=== PATIENT | male | born 1955 | race Caucasian/White ===

== ENCOUNTER 2019-11-16 12:15 | Outpatient (CLI) | payer MEDICARE ==
[~2019-11-16 12:15] MED LIST: ALBU8HFA PO; BENZ200C59 PO; GABA-532 PO; GUAI120018 PO; LISI10TA4 PO; METO50TA17 PO; SULF1TAB49 PO
[2019-11-16] MEDS ORDERED: hydrocortisone 1% cream 28gm TP ONE (14:15)
== END 2019-11-16 14:27 | disposition home or self-care (01) ==
LOC: WOUND CARE 12:15 → EDSTATUS 13:00 → WOUND CARE 14:27
PROVIDERS: ATTEND Nurse Practitioner
DX: S81.802A Unspecified open wound, left lower leg, initial encounter (principal); L03.115 Cellulitis of right lower limb; L03.113 Cellulitis of right upper limb; L03.114 Cellulitis of left upper limb; E11.319 Type 2 diabetes mellitus with unspecified diabetic retinopathy without macular edema; E11.22 Type 2 diabetes mellitus with diabetic chronic kidney disease; I13.10 Hypertensive heart and chronic kidney disease without heart failure, with stage 1 through stage 4 chronic kidney disease, or unspecified chronic kidney disease; I25.10 Atherosclerotic heart disease of native coronary artery without angina pectoris; N18.9 Chronic kidney disease, unspecified; D63.1 Anemia in chronic kidney disease; E11.65 Type 2 diabetes mellitus with hyperglycemia; E11.40 Type 2 diabetes mellitus with diabetic neuropathy, unspecified; E11.51 Type 2 diabetes mellitus with diabetic peripheral angiopathy without gangrene; L23.7 Allergic contact dermatitis due to plants, except food; E78.5 Hyperlipidemia, unspecified; M19.90 Unspecified osteoarthritis, unspecified site; E44.0 Moderate protein-calorie malnutrition; E66.01 Morbid (severe) obesity due to excess calories; I25.2 Old myocardial infarction; G89.29 Other chronic pain; I87.8 Other specified disorders of veins; E78.00 Pure hypercholesterolemia, unspecified; J44.9 Chronic obstructive pulmonary disease, unspecified; F12.10 Cannabis abuse, uncomplicated; F17.210 Nicotine dependence, cigarettes, uncomplicated; Z68.36 Body mass index [BMI] 36.0-36.9, adult; Z79.4 Long term (current) use of insulin; Z79.2 Long term (current) use of antibiotics; Z79.899 Other long term (current) drug therapy; X58.XXXA Exposure to other specified factors, initial encounter; Y93.89 Activity, other specified; Y92.89 Other specified places as the place of occurrence of the external cause; Y99.8 Other external cause status
CPT/HCPCS: 36416; 82948; 87070; 87075; 87102; G0463

== ENCOUNTER 2019-11-23 13:05 | Outpatient (CLI) | payer MEDICARE | END 2019-11-23 14:15 | disposition home or self-care (01) | LOC: WOUND CARE 13:05 → EDSTATUS 13:20 → WOUND CARE 14:15 | PROVIDERS: ATTEND Nurse Practitioner | DX: S81.802D Unspecified open wound, left lower leg, subsequent encounter (principal); L03.115 Cellulitis of right lower limb; L03.113 Cellulitis of right upper limb; L03.114 Cellulitis of left upper limb; E11.319 Type 2 diabetes mellitus with unspecified diabetic retinopathy without macular edema; E11.22 Type 2 diabetes mellitus with diabetic chronic kidney disease; I13.10 Hypertensive heart and chronic kidney disease without heart failure, with stage 1 through stage 4 chronic kidney disease, or unspecified chronic kidney disease; I25.10 Atherosclerotic heart disease of native coronary artery without angina pectoris; N18.9 Chronic kidney disease, unspecified; D63.1 Anemia in chronic kidney disease; E11.65 Type 2 diabetes mellitus with hyperglycemia; E11.40 Type 2 diabetes mellitus with diabetic neuropathy, unspecified; E11.51 Type 2 diabetes mellitus with diabetic peripheral angiopathy without gangrene; L23.7 Allergic contact dermatitis due to plants, except food; E78.5 Hyperlipidemia, unspecified; M19.90 Unspecified osteoarthritis, unspecified site; E44.0 Moderate protein-calorie malnutrition; E66.01 Morbid (severe) obesity due to excess calories; I25.2 Old myocardial infarction; G89.29 Other chronic pain; I87.8 Other specified disorders of veins; E78.00 Pure hypercholesterolemia, unspecified; J44.9 Chronic obstructive pulmonary disease, unspecified; F12.10 Cannabis abuse, uncomplicated; F17.210 Nicotine dependence, cigarettes, uncomplicated; Z68.36 Body mass index [BMI] 36.0-36.9, adult; Z79.4 Long term (current) use of insulin; Z79.2 Long term (current) use of antibiotics; Z79.899 Other long term (current) drug therapy; X58.XXXD Exposure to other specified factors, subsequent encounter | CPT/HCPCS: 36416; 82948; G0463 ==

== ENCOUNTER 2019-11-30 09:08 | Outpatient (CLI) | payer MEDICARE | END 2019-11-30 23:59 | disposition home or self-care (01) | LOC: WOUND CARE 09:08 → EDSTATUS 09:40 → WOUND CARE 23:59 | PROVIDERS: ATTEND Nurse Practitioner | DX: S81.802D Unspecified open wound, left lower leg, subsequent encounter (principal); S81.801D Unspecified open wound, right lower leg, subsequent encounter; L03.115 Cellulitis of right lower limb; L03.113 Cellulitis of right upper limb; L03.114 Cellulitis of left upper limb; E11.319 Type 2 diabetes mellitus with unspecified diabetic retinopathy without macular edema; E11.22 Type 2 diabetes mellitus with diabetic chronic kidney disease; I13.0 Hypertensive heart and chronic kidney disease with heart failure and stage 1 through stage 4 chronic kidney disease, or unspecified chronic kidney disease; I25.10 Atherosclerotic heart disease of native coronary artery without angina pectoris; N18.9 Chronic kidney disease, unspecified; D63.1 Anemia in chronic kidney disease; E11.65 Type 2 diabetes mellitus with hyperglycemia; E11.40 Type 2 diabetes mellitus with diabetic neuropathy, unspecified; E11.51 Type 2 diabetes mellitus with diabetic peripheral angiopathy without gangrene; L23.7 Allergic contact dermatitis due to plants, except food; E78.5 Hyperlipidemia, unspecified; M19.90 Unspecified osteoarthritis, unspecified site; E44.0 Moderate protein-calorie malnutrition; E66.01 Morbid (severe) obesity due to excess calories; I25.2 Old myocardial infarction; G89.29 Other chronic pain; I87.8 Other specified disorders of veins; E78.00 Pure hypercholesterolemia, unspecified; J44.9 Chronic obstructive pulmonary disease, unspecified; F12.10 Cannabis abuse, uncomplicated; F17.210 Nicotine dependence, cigarettes, uncomplicated; Z68.36 Body mass index [BMI] 36.0-36.9, adult; Z79.4 Long term (current) use of insulin; Z79.899 Other long term (current) drug therapy; X58.XXXD Exposure to other specified factors, subsequent encounter | CPT/HCPCS: 29581; 36416; 82948 ==

== ENCOUNTER 2019-12-07 12:57 | Outpatient (CLI) | payer MEDICARE | END 2019-12-07 23:59 | disposition home or self-care (01) | LOC: WOUND CARE 12:57 | PROVIDERS: ATTEND Nurse Practitioner | DX: S81.802D Unspecified open wound, left lower leg, subsequent encounter (principal); S81.801D Unspecified open wound, right lower leg, subsequent encounter; L03.115 Cellulitis of right lower limb; L03.113 Cellulitis of right upper limb; L03.114 Cellulitis of left upper limb; E11.319 Type 2 diabetes mellitus with unspecified diabetic retinopathy without macular edema; E11.22 Type 2 diabetes mellitus with diabetic chronic kidney disease; I13.0 Hypertensive heart and chronic kidney disease with heart failure and stage 1 through stage 4 chronic kidney disease, or unspecified chronic kidney disease; I25.10 Atherosclerotic heart disease of native coronary artery without angina pectoris; N18.9 Chronic kidney disease, unspecified; D63.1 Anemia in chronic kidney disease; E11.65 Type 2 diabetes mellitus with hyperglycemia; E11.40 Type 2 diabetes mellitus with diabetic neuropathy, unspecified; E11.51 Type 2 diabetes mellitus with diabetic peripheral angiopathy without gangrene; L23.7 Allergic contact dermatitis due to plants, except food; E78.5 Hyperlipidemia, unspecified; M19.90 Unspecified osteoarthritis, unspecified site; E44.0 Moderate protein-calorie malnutrition; E66.01 Morbid (severe) obesity due to excess calories; I25.2 Old myocardial infarction; G89.29 Other chronic pain; I87.8 Other specified disorders of veins; E78.00 Pure hypercholesterolemia, unspecified; J44.9 Chronic obstructive pulmonary disease, unspecified; F12.10 Cannabis abuse, uncomplicated; Z68.36 Body mass index [BMI] 36.0-36.9, adult; Z79.4 Long term (current) use of insulin; Z79.899 Other long term (current) drug therapy; X58.XXXD Exposure to other specified factors, subsequent encounter | CPT/HCPCS: 82948; G0463 ==

== ENCOUNTER 2020-10-15 19:53 | Emergency (ER) | payer MEDICARE, OTHER ==
[~2020-10-15] VITALS: Ht 180.3 cm; Wt 136.4 kg
[~2020-10-15 19:53] MED LIST changes: +LISI10TA27 PO; -LISI10TA4 PO
[2020-10-15 20:52] VITALS: BP 153/109
[2020-10-15 21:58] LABS: BASOPHILS % (AUTO) 0.4 % (0-1); EOSINOPHILS % (AUTO) 0.5 % (0-6); HEMATOCRIT 38.8 % (42.0-52.0); HEMOGLOBIN 12.7 g/dl (14.0-17.9); LYMPHOCYTES # (AUTO) 1.8 X10'3 (1.1-4.8); LYMPHOCYTES % (AUTO) 24.7 % (21-51); MEAN CORPUSCULAR HEMOGLOBIN 29.8 PG (27.0-31.0); MEAN CORPUSCULAR HGB CONC 32.8 g/dL (33.0-36.5); MEAN CORPUSCULAR VOLUME 90.9 FL (78-98); MEAN PLATELET VOLUME 6.7 FL (7.4-10.4); MONOCYTES # (AUTO) 0.6 X10'3 (0-0.9); MONOCYTES % (AUTO) 7.9 % (2-12); NEUTROPHILS # (AUTO) 4.8 X10'3 (1.8-7.7); NEUTROPHILS % (AUTO) 66.5 % (42-75); PLATELET COUNT 414 X10'3 (140-440); RED BLOOD COUNT 4.27 X10'6 (4.70-6.10); RED CELL DISTRIBUTION WIDTH 15.8 % (11.5-14.5); WHITE BLOOD COUNT 7.3 X10'3 (4.5-11.0)
[2020-10-15 22:17] LABS: ALANINE AMINOTRANSFERASE 20 U/L (12-78); ALBUMIN 3.1 G/DL (3.4-5.0); ALBUMIN/GLOBULIN RATIO 0.7 (1.1-1.5); ALKALINE PHOSPHATASE 101 IU/L (46-116); ANION GAP 9 (8-16); ASPARTATE AMINO TRANSFERASE 15 U/L (10-37); BILIRUBIN,TOTAL 0.7 MG/DL (0.1-1.0); BLOOD UREA NITROGEN 16 MG/DL (7-18); BUN/CREATININE RATIO 16.3 (5.4-32.0); CALCIUM 8.4 MG/DL (8.5-10.1); CHLORIDE 100 MMOL/L (99-107); CREATININE 0.98 MG/DL (0.60-1.10); GLUCOSE 184 MG/DL (70-104); POTASSIUM 3.8 MMOL/L (3.5-5.1); SODIUM 140 MMOL/L (135-145); TOTAL CARBON DIOXIDE 31.5 MMOL/L (24-32); TOTAL PROTEIN 7.4 G/DL (6.4-8.2); eGFR 77 ML/MIN
[2020-10-15 22:35] LABS: FERRITIN 124 NG/ML (26-388); LACTATE DEHYDROGENASE 222 U/L (85-227)
[2020-10-15 23:43] LABS: D-DIMER 1.21 MG/L FEU (0-0.50)
[2020-10-16] MEDS ORDERED: iohexol 350MG/ML 100ml bottle IV ONE (01:36)
[2020-10-27] MEDS ORDERED: GLIP10TA11 PO (16:17)
[2020-10-27] MEDS ORDERED: AMLO5TAB16 PO (16:17)
[2020-10-27] MEDS ORDERED: HYDR25TA5 PO (16:17)
[2020-10-27] MEDS ORDERED: METF-950 PO (16:17)
[2020-10-27] MEDS ORDERED: EMPA10TA PO (16:17)
[2020-10-27] MEDS ORDERED: CARCD120C PO (16:17)
== END 2020-10-16 02:24 | disposition left against medical advice (07) ==
LOC: ER 19:54
DX: K46.9 Unspecified abdominal hernia without obstruction or gangrene (principal); Z53.21 Procedure and treatment not carried out due to patient leaving prior to being seen by health care provider
CPT/HCPCS: 36415; 71045; 80053; 82728; 83605; 83615; 84145; 85025; 85379; 85384; 87040; Q9967

== ENCOUNTER 2020-11-06 12:39 | Emergency (ER) | payer OTHER ==
[~2020-11-06] VITALS: Ht 172.7 cm; Wt 125.0 kg
[~2020-11-06 12:39] MED LIST changes: -ALBU8HFA PO; +APIX5TAB3 PO; -BENZ200C59 PO; +DILT240C90 PO; +EMPA10TA PO; +FURO40TA4 PO; -GABA-532 PO; +GLIP10TA11 PO; -GUAI120018 PO; +HYDR25TA5 PO; -LISI10TA27 PO; +LISI2.5T14 PO; +METF-950 PO; +METO50TA16 PO; -METO50TA17 PO; +POTA20TA19 PO; +PRED20TA PO; -SULF1TAB49 PO
[2020-11-06] MEDS ORDERED: normal saline 1000ML IV soln IV ONE (13:50)
[2020-11-06 14:20] LABS: BASOPHILS % (AUTO) 0.1 % (0-1); EOSINOPHILS # (AUTO) 0.1 X10'3 (0-0.9); EOSINOPHILS % (AUTO) 0.5 % (0-6); HEMOGLOBIN 13.7 g/dl (14.0-17.9); LYMPHOCYTES # (AUTO) 1.7 X10'3 (1.1-4.8); LYMPHOCYTES % (AUTO) 17.1 % (21-51); MEAN CORPUSCULAR HEMOGLOBIN 29.4 PG (27.0-31.0); MEAN CORPUSCULAR HGB CONC 32.6 g/dL (33.0-36.5); MEAN CORPUSCULAR VOLUME 90.3 FL (78-98); MEAN PLATELET VOLUME 7.3 FL (7.4-10.4); MONOCYTES # (AUTO) 0.8 X10'3 (0-0.9); NEUTROPHILS # (AUTO) 7.3 X10'3 (1.8-7.7); NEUTROPHILS % (AUTO) 74.3 % (42-75); PLATELET COUNT 374 X10'3 (140-440); RED BLOOD COUNT 4.65 X10'6 (4.70-6.10); RED CELL DISTRIBUTION WIDTH 16.6 % (11.5-14.5); WHITE BLOOD COUNT 9.9 X10'3 (4.5-11.0)
[2020-11-06 14:31] LABS: PARTIAL THROMBOPLASTIN TIME 23 SECONDS (22-32)
[2020-11-06 14:36] LABS: ALANINE AMINOTRANSFERASE 49 U/L (12-78); ALBUMIN 3.2 G/DL (3.4-5.0); ALBUMIN/GLOBULIN RATIO 0.9 (1.1-1.5); ALKALINE PHOSPHATASE 105 IU/L (46-116); ANION GAP 9 (8-16); ASPARTATE AMINO TRANSFERASE 21 U/L (10-37); BILIRUBIN,TOTAL 0.6 MG/DL (0.1-1.0); BLOOD UREA NITROGEN 35 MG/DL (7-18); BUN/CREATININE RATIO 31.5 (5.4-32.0); CALCIUM 8.6 MG/DL (8.5-10.1); CHLORIDE 104 MMOL/L (99-107); CREATININE 1.11 MG/DL (0.60-1.10); GLUCOSE 161 MG/DL (70-104); POTASSIUM 3.5 MMOL/L (3.5-5.1); SODIUM 144 MMOL/L (135-145); TOTAL CARBON DIOXIDE 31.1 MMOL/L (24-32); TOTAL PROTEIN 6.9 G/DL (6.4-8.2); eGFR 66 ML/MIN
[2020-11-06] MEDS ORDERED: acetaminophen 325mg tablet PO ONE (14:40)
[2020-11-06 14:43] LABS: MAGNESIUM 2.4 MG/DL (1.5-2.4)
[2020-11-06] MEDS ORDERED: diltiazem 5mg/ml 5ml inj. IV ONE (15:15)
[2020-11-06 15:52] VITALS: BP 124/101
--- NOTE | 2020-11-06 15:58 | NUR ---
Per YASEMIN Dean only give 1500ml total fluid bolus due to PBNP
[2020-11-06] MEDS ORDERED: AZIT250T83 PO (16:33)
[2020-11-06] MEDS ORDERED: AMOX-422 PO (16:33)
== END 2020-11-06 16:50 | disposition left against medical advice (07) ==
LOC: ER 12:40
DX: R06.02 Shortness of breath (principal); Z20.822 Contact with and (suspected) exposure to COVID-19; J18.9 Pneumonia, unspecified organism; I25.10 Atherosclerotic heart disease of native coronary artery without angina pectoris; E78.00 Pure hypercholesterolemia, unspecified; I10 Essential (primary) hypertension; I25.2 Old myocardial infarction; E11.9 Type 2 diabetes mellitus without complications; G89.29 Other chronic pain; F12.90 Cannabis use, unspecified, uncomplicated; Z87.01 Personal history of pneumonia (recurrent); Z90.89 Acquired absence of other organs; Z98.890 Other specified postprocedural states; Z88.5 Allergy status to narcotic agent; Z79.2 Long term (current) use of antibiotics; Z79.899 Other long term (current) drug therapy
CPT/HCPCS: 36415; 71045; 80053; 83605; 83735; 83880; 84145; 84484; 85025; 85610; 85730; 87040; 87635; 93005; 96361; 96374; 99285; C9803; J7030; J3490

== ENCOUNTER 2020-11-26 16:07 | Inpatient (IN) | payer OTHER ==
[~2020-11-26] VITALS: Ht 182.9 cm; Wt 125.9 kg
[2020-11-26] MEDS: amiodarone/D5 360MG/200ML BAG 200 ML IV SCH (16:00)
[2020-11-26] MEDS ORDERED: diltiazem 5mg/ml 5ml inj. IV ONE ×2 (16:15→16:40)
[2020-11-26 16:36] LABS: BASOPHILS # (AUTO) 0.1 X10'3 (0-0.2); BASOPHILS % (AUTO) 0.6 % (0-1); EOSINOPHILS % (AUTO) 0.2 % (0-6); HEMATOCRIT 45.2 % (42.0-52.0); HEMOGLOBIN 14.4 g/dl (14.0-17.9); LYMPHOCYTES # (AUTO) 2.6 X10'3 (1.1-4.8); LYMPHOCYTES % (AUTO) 21.4 % (21-51); MEAN CORPUSCULAR HEMOGLOBIN 28.1 PG (27.0-31.0); MEAN CORPUSCULAR HGB CONC 31.9 g/dL (33.0-36.5); MEAN CORPUSCULAR VOLUME 87.9 FL (78-98); MEAN PLATELET VOLUME 7.6 FL (7.4-10.4); MONOCYTES % (AUTO) 8.4 % (2-12); NEUTROPHILS # (AUTO) 8.3 X10'3 (1.8-7.7); NEUTROPHILS % (AUTO) 69.4 % (42-75); PLATELET COUNT 438 X10'3 (140-440); RED BLOOD COUNT 5.14 X10'6 (4.70-6.10); RED CELL DISTRIBUTION WIDTH 17.6 % (11.5-14.5)
[2020-11-26 16:56] LABS: ABG BASE EXCESS -2.7 mmol/L (-2.0-2.0); ABG OXYGEN SATURATION 97.7 % (94-97); ABG PCO2 (T) 37.3 mmHg (35.0-48.0); ABG PO2 (T) 105.8 mmHg (75.0-100.0); ALLEN'S TEST POSITIVE; FLOW 5 L/min; FMetHb 0.3 % (0.0-1.5); FO2Hb 96.4 % (94-97); PATIENT TEMPERATURE 36.4; TOTAL HEMOGLOBIN 14.3 G/dl (14.0-18.0)
[2020-11-26] MEDS ORDERED: dexamethasone sod phosphate 10mg/ml inj IV STA (17:00)
[2020-11-26 17:10] LABS: ALANINE AMINOTRANSFERASE 137 U/L (12-78); ALBUMIN 3.2 G/DL (3.4-5.0); ALBUMIN/GLOBULIN RATIO 0.8 (1.1-1.5); ALKALINE PHOSPHATASE 125 IU/L (46-116); ANION GAP 11 (8-16); ASPARTATE AMINO TRANSFERASE 123 U/L (10-37); BILIRUBIN,TOTAL 0.8 MG/DL (0.1-1.0); BLOOD UREA NITROGEN 46 MG/DL (7-18); BUN/CREATININE RATIO 35.1 (5.4-32.0); CALCIUM 8.8 MG/DL (8.5-10.1); CHLORIDE 104 MMOL/L (99-107); CREATININE 1.31 MG/DL (0.60-1.10); GLUCOSE 186 MG/DL (70-104); POTASSIUM 4.1 MMOL/L (3.5-5.1); SODIUM 141 MMOL/L (135-145); TOTAL CARBON DIOXIDE 25.6 MMOL/L (24-32); eGFR 55 ML/MIN
[2020-11-26] MEDS ORDERED: CefTRIAXone/D5W-Rocephin 1gm 50 ML IV ONE (17:10)
[2020-11-26] MEDS ORDERED: azithromycin/NS 500mg/250ml 250 ML IV ONE (17:10)
[2020-11-26] MEDS ORDERED: amiodarone 150mg/dext, iso-os 100 ML IV ONE (17:15)
[2020-11-26 17:17] LABS: ETHANOL < 0.010 GM/DL (0.0-0.010); MAGNESIUM 2.3 MG/DL (1.5-2.4)
[2020-11-26] MEDS ORDERED: magnesium hydroxide 30ml (MOM) UD suspension PO PRN (17:25)
[2020-11-26] MEDS ORDERED: mag hydrox/Alum hydrox/simeth 30ml oral suspension PO PRN (17:25)
[2020-11-26] MEDS ORDERED: ALBUTEROL INHALER 1 PUFF/90 MCG INHALER IH PRN (17:25)
[2020-11-26] MEDS ORDERED: ondansetron/PF 4mg/2ml inj IV PRN (17:25)
[2020-11-26] MEDS ORDERED: LORazepam 2 mg/ml vial IV PRN (17:25)
[2020-11-26] MEDS ORDERED: acetaminophen 325mg tablet PO PRN (17:25)
[2020-11-26 17:38] LABS: URINE AMPHETAMINE SCREEN NEGATIVE (Neg); URINE BARBITUATE SCREEN NEGATIVE (Neg); URINE BENZODIAZEPINES SCREEN NEGATIVE (Neg); URINE CANNABINOID SCREEN POSITIVE (Neg); URINE COCAINE SCREEN NEGATIVE (Neg); URINE METHADONE SCREEN NEGATIVE (Neg); URINE OPIATE SCREEN NEGATIVE (Neg); URINE PHENCYCLIDINE SCREEN NEGATIVE (Neg)
[2020-11-26 17:39] LABS: CLARITY,URINE SLIGHTLY CLOUDY (Clear); COLOR,URINE YELLOW (Yellow); GLUCOSE, URINE NEGATIVE (Neg); KETONES,URINE NEGATIVE (Neg); LEUKOCYTE ESTERASE ,URINE NEGATIVE (Neg); NITRITES, URINE NEGATIVE (Neg); OCCULT BLOOD,URINE TRACE-LYSED (Neg); PROTEIN,URINE NEGATIVE (Neg); UA COLLECTION TYPE NON-SPECIFIED; UROBILINOGEN,URINE 0.2 E.U/dL (0.2-1.0)
[2020-11-26 17:47] LABS: SQUAMOUS EPITHELIAL CELL,UR FEW /LPF (FEW); WBC CLUMPS,URINE FEW /HPF (NEGATIVE)
[2020-11-26 17:48] LABS: BACTERIA,URINE FEW /HPF (Neg); RBC,URINE 0-2 /HPF (0-2)
[2020-11-26] MEDS ORDERED: ATOR40TA72 PO (18:08)
[2020-11-26] MEDS ORDERED: LISI2.5T89 PO (18:08)
[2020-11-26] MEDS ORDERED: POTA20TA19 PO (18:08)
[2020-11-26] MEDS ORDERED: REMDESIVIR INJ 200 MG in normal saline 100ml IV soln 60 ML IV ONE (18:30)
--- NOTE | 2020-11-26 19:00 | NUR ---
Patient is resistive to care, refused to stay on gurney, he is hypoxic at times and has sleep apnea to where he doses off and almost falls off the gurney. Ativan will be given in an effort to relax the patient.
[2020-11-26] MEDS: normal saline 1000ml 1,000 ML IV SCH (19:26)
[2020-11-26] MEDS: apixaban 5mg tablet PO SCH (20:00)
[2020-11-26] MEDS ORDERED: dexamethasone sod phosphate 10mg/ml inj IV SCH (20:00)
--- NOTE | 2020-11-26 20:15 | NUR ---
Placed 14Fr Coude catheter. Urine clear and brittany. Specimen sent to lab.
[2020-11-26] MEDS: furosemide 40mg/4ml inj IV SCH (20:43)
[2020-11-26] MEDS: docusate sod 100mg capsule PO SCH (20:43)
--- NOTE | 2020-11-26 20:45 | NUR ---
Patient anxious and non-compliant, his HR has been in 130-150's since I assumed care. He was given Ativan 1mg for aggitation and is now ALOC and has been restrained. I have cld Dr. Grimaldo and she had be give Digoxin 125mcg for the HR, I have also ordered an ABG for hypoxia as he is apnic at times and seem to has sleep apnea.
[2020-11-26] MEDS: metoprolol tartrate 50mg tablet PO SCH (20:47)
[2020-11-26] MEDS ORDERED: digoxin 250mcg/ml 2ml ampule IV ONE (20:55)
[2020-11-26 21:31] LABS: ABG BASE EXCESS -4.2 mmol/L (-2.0-2.0); ABG PCO2 (T) 34.3 mmHg (35.0-48.0); ABG PO2 (T) 79.2 mmHg (75.0-100.0); ALLEN'S TEST POSITIVE; FCOHb 0.9 % (0.0-3.9); FMetHb 0.2 % (0.0-1.5); TOTAL HEMOGLOBIN 14.5 G/dl (14.0-18.0)
--- NOTE | 2020-11-26 21:59 | NUR ---
Per Dr. Grimaldo give Haldol 5mg IM for aggitation, also get stat CXR
[2020-11-26] MEDS ORDERED: haloperidol lactate 5mg/ml inj IM ONE (22:00)
--- NOTE | 2020-11-26 22:12 | NUR ---
Gave report to HANS Douglass on Ortho.
[2020-11-26] MEDS ORDERED: morphine 2 MG/ML inj. syringe IV ONE (22:15)
[2020-11-26] MEDS ORDERED: metoprolol tartrate 1mg/ml inj IV ONE (22:15)
[2020-11-26] MEDS ORDERED: furosemide 10 MG/1 ML 10ml inj IV ONE (22:35)
--- NOTE | 2020-11-26 22:35 | NUR ---
Dr. Grimaldo at the bedside, she advised me to order Lasix 20mg IV now.
--- NOTE | 2020-11-26 22:48 | NUR ---
sitter at bedside with patient
[2020-11-27] VITALS (19 sets, daily range): BP systolic 107–146; BP diastolic 77–108
[2020-11-27] MEDS: amiodarone/D5 360MG/200ML BAG 200 ML IV SCH ×2 (00:10→08:34)
--- NOTE | 2020-11-27 01:05 | NUR ---
Pt. arrived to unit accompanied by Betty RN. Pt. alert with tacticle and repositioning. Pt. with apenic episodes, page to RT. Spoke with Dr. Grimaldo New telephone order for restraints. Dr. Grimaldo also agreed to follow amio protocol. Heart Monitor with continous BP monitor in place, pt. 110s-130s. BP 120/ 96 . Will continue to monitor this patient. Addendum: 11/27/20 at 0156 by Evonne Clark RN Pt. HR 110s-130s.
--- NOTE | 2020-11-27 03:55 | NUR ---
Pt. restless, with sitter. Pt. in restraints due to pulling lines, and impulsiveness Addendum: 11/27/20 at 0356 by Evonne Clark RN Amended: Links added.
--- NOTE | 2020-11-27 03:57 | NUR ---
Pt. restless with sitter. Addendum: 11/27/20 at 0357 by Evonne Clark RN Amended: Links added.
[2020-11-27 05:41] LABS: BASOPHILS % (AUTO) 0.1 % (0-1); EOSINOPHILS % (AUTO) 0 % (0-6); HEMATOCRIT 41.6 % (42.0-52.0); HEMOGLOBIN 13.2 g/dl (14.0-17.9); LYMPHOCYTES # (AUTO) 0.5 X10'3 (1.1-4.8); LYMPHOCYTES % (AUTO) 7.7 % (21-51); MEAN CORPUSCULAR HGB CONC 31.8 g/dL (33.0-36.5); MEAN CORPUSCULAR VOLUME 88.1 FL (78-98); MEAN PLATELET VOLUME 7.6 FL (7.4-10.4); MONOCYTES # (AUTO) 0.3 X10'3 (0-0.9); MONOCYTES % (AUTO) 3.9 % (2-12); NEUTROPHILS # (AUTO) 5.7 X10'3 (1.8-7.7); NEUTROPHILS % (AUTO) 88.3 % (42-75); PLATELET COUNT 350 X10'3 (140-440); RED BLOOD COUNT 4.72 X10'6 (4.70-6.10); RED CELL DISTRIBUTION WIDTH 17.5 % (11.5-14.5); WHITE BLOOD COUNT 6.4 X10'3 (4.5-11.0)
[2020-11-27 05:52] LABS: ALANINE AMINOTRANSFERASE 182 U/L (12-78); ALBUMIN 2.8 G/DL (3.4-5.0); ALBUMIN/GLOBULIN RATIO 0.8 (1.1-1.5); ALKALINE PHOSPHATASE 109 IU/L (46-116); ANION GAP 15 (8-16); ASPARTATE AMINO TRANSFERASE 149 U/L (10-37); BILIRUBIN,TOTAL 0.5 MG/DL (0.1-1.0); BLOOD UREA NITROGEN 51 MG/DL (7-18); BUN/CREATININE RATIO 37.8 (5.4-32.0); CHLORIDE 105 MMOL/L (99-107); CREATININE 1.35 MG/DL (0.60-1.10); GLUCOSE 262 MG/DL (70-104); SODIUM 142 MMOL/L (135-145); TOTAL CARBON DIOXIDE 22.4 MMOL/L (24-32); TOTAL PROTEIN 6.1 G/DL (6.4-8.2); eGFR 53 ML/MIN
--- NOTE | 2020-11-27 06:31 | NUR ---
Problems reprioritized. Patient report given, questions answered & plan of care reviewed with Rahul .
[2020-11-27] MEDS: lisinopril 2.5mg tablet PO SCH ×2 (08:25→08:48)
[2020-11-27] MEDS: atorvastatin 20mg tablet PO SCH ×2 (08:27→08:48)
[2020-11-27] MEDS: EMPAGLIFLOZIN 10 MG PO SCH (08:28)
[2020-11-27] MEDS ORDERED: REMDESIVIR INJ 100 MG in normal saline 100ml IV soln 80 ML IV SCH (08:30)
[2020-11-27] MEDS: CefTRIAXone 2gm/D5W 50ml BAG 50 ML IV SCH (08:46)
[2020-11-27] MEDS: furosemide 40mg/4ml inj IV SCH ×2 (08:46→21:33)
[2020-11-27] MEDS: apixaban 5mg tablet PO SCH ×2 (08:47→09:00)
[2020-11-27] MEDS: docusate sod 100mg capsule PO SCH ×3 (08:47→20:00)
[2020-11-27] MEDS: metoprolol tartrate 50mg tablet PO SCH ×3 (08:47→20:00)
[2020-11-27] MEDS: diltiazem CD 120mg capsule (once-daily) PO SCH ×2 (08:47→09:00)
[2020-11-27] MEDS: dexamethasone inj 10 MG in normal saline 50ml IV soln 50 ML IV SCH ×2 (08:48→21:34)
--- NOTE | 2020-11-27 09:19 | NUR ---
MESSAGE: RE: Ray, Dariel room 4015 Pt unable to swallow, chokes and coughs with sips of water. Amiodarone drip has been discontinued. Need to be reordered as pt can't take PO. Rahul MAXWELL [phone]
--- NOTE | 2020-11-27 10:07 | NUR ---
RE: Ray, Dariel room 4023M now Pt amiodarone gtt is out in about 5 min. Pt's HR is still 140's on the gtt. Pt unable to take PO. Amiodarone gtt needs to be reordered. Unless you want another type of gtt. Please advise Rahul MAXWELL [phone]
[2020-11-27] MEDS: diltiazem-NS 100mg/100ml 100 ML IV SCH (12:37)
[2020-11-27 13:11] LABS: ABG BASE EXCESS -2.4 mmol/L (-2.0-2.0); ABG HCO3 23.4 mmol/L (22.0-26.0); ABG OXYGEN SATURATION 98.7 % (94-97); ABG PO2 (T) 133.3 mmHg (75.0-100.0); ALLEN'S TEST Modified; FCOHb 0.3 % (0.0-3.9); FLOW 6 L/min; FMetHb 0.4 % (0.0-1.5); TOTAL HEMOGLOBIN 14.5 G/dl (14.0-18.0)
--- NOTE | 2020-11-27 17:13 | NUR ---
Phone call to daughter and youngest son inquiring if able to bring in home med jardiance. Only son with access to the house is in ED right now. Brother will ask to bring in med if older brother is not admitted.
[2020-11-27] MEDS: enoxaparin 60mg/0.6ml syringe SUBCUT SCH (21:33)
[2020-11-28] VITALS (7 sets, daily range): BP systolic 101–148; BP diastolic 61–98
[2020-11-28] MEDS: diltiazem-NS 100mg/100ml 100 ML IV SCH (05:50)
[2020-11-28] MEDS: dexamethasone inj 10 MG in normal saline 50ml IV soln 50 ML IV SCH ×2 (07:33→19:43)
[2020-11-28] MEDS: CefTRIAXone 2gm/D5W 50ml BAG 50 ML IV SCH (07:33)
[2020-11-28] MEDS: furosemide 40mg/4ml inj IV SCH ×2 (07:37→19:43)
[2020-11-28] MEDS: enoxaparin 60mg/0.6ml syringe SUBCUT SCH ×2 (07:38→19:43)
[2020-11-28 07:51] LABS: BASOPHILS % (AUTO) 0.2 % (0-1); EOSINOPHILS % (AUTO) 0 % (0-6); HEMATOCRIT 43.1 % (42.0-52.0); HEMOGLOBIN 13.9 g/dl (14.0-17.9); LYMPHOCYTES # (AUTO) 1.2 X10'3 (1.1-4.8); LYMPHOCYTES % (AUTO) 16.4 % (21-51); MEAN CORPUSCULAR HGB CONC 32.1 g/dL (33.0-36.5); MEAN CORPUSCULAR VOLUME 87.3 FL (78-98); MEAN PLATELET VOLUME 7.4 FL (7.4-10.4); MONOCYTES # (AUTO) 1.2 X10'3 (0-0.9); MONOCYTES % (AUTO) 15.4 % (2-12); NEUTROPHILS # (AUTO) 5.2 X10'3 (1.8-7.7); PLATELET COUNT 343 X10'3 (140-440); RED BLOOD COUNT 4.94 X10'6 (4.70-6.10); RED CELL DISTRIBUTION WIDTH 17.6 % (11.5-14.5); WHITE BLOOD COUNT 7.6 X10'3 (4.5-11.0)
[2020-11-28] MEDS: EMPAGLIFLOZIN 10 MG PO SCH (08:00)
[2020-11-28 08:55] LABS: ALANINE AMINOTRANSFERASE 219 U/L (12-78); ALBUMIN 2.8 G/DL (3.4-5.0); ALBUMIN/GLOBULIN RATIO 0.8 (1.1-1.5); ALKALINE PHOSPHATASE 110 IU/L (46-116); ANION GAP 10 (8-16); ASPARTATE AMINO TRANSFERASE 123 U/L (10-37); BILIRUBIN,TOTAL 0.4 MG/DL (0.1-1.0); BLOOD UREA NITROGEN 49 MG/DL (7-18); BUN/CREATININE RATIO 36.6 (5.4-32.0); CALCIUM 8.9 MG/DL (8.5-10.1); CHLORIDE 109 MMOL/L (99-107); CREATININE 1.34 MG/DL (0.60-1.10); GLUCOSE 225 MG/DL (70-104); POTASSIUM 3.8 MMOL/L (3.5-5.1); SODIUM 147 MMOL/L (135-145); TOTAL CARBON DIOXIDE 28.3 MMOL/L (24-32); TOTAL PROTEIN 6.2 G/DL (6.4-8.2); eGFR 53 ML/MIN
[2020-11-28] MEDS: potassium Cl 20 mEq SR tablet PO SCH (09:12)
[2020-11-28] MEDS: docusate sod 100mg capsule PO SCH ×2 (09:13→19:42)
[2020-11-28] MEDS: lisinopril 2.5mg tablet PO SCH (09:13)
[2020-11-28] MEDS: atorvastatin 20mg tablet PO SCH (09:13)
[2020-11-28] MEDS: metoprolol tartrate 50mg tablet PO SCH ×2 (09:14→19:42)
[2020-11-28] MEDS: REMDESIVIR INJ 100 MG in normal saline 100ml IV soln 80 ML IV SCH (09:52)
[2020-11-28 09:58] LABS: TOTAL CELLS COUNTED 100
[2020-11-28 09:59] LABS: ANISOCYTOSIS 1+; PLATELET ESTIMATE NORMAL
[2020-11-28 10:00] LABS: POLYCHROMASIA FEW
--- NOTE | 2020-11-28 11:09 | NUR ---
spoke to md rojas, orders received to increase cardizem
--- NOTE | 2020-11-28 13:12 | NUR ---
PAGER ID: [phone] MESSAGE: [id number] BERTA GARCIA- 200 THIS AM, 309 NOW. PLAN? HEATHERRPerla [id number] ORDERS RECEIVED
--- NOTE | 2020-11-28 15:33 | NUR ---
1515- pt aggitated, sitting at bedside refusing to cooperate with sitter. he responded well to me. drowsy but oriented x3. c/o back pain in bed and wants to sit up but bp is low with map 62. pt agreed reluctantly to get back in bed so i could recheck his bp. Carmita contreras md order obtained for lower rate and raised legs sbp christina from 92 to 112. Merino aware of events and orders received for pain meds and hr trends on 7.5mg/hr cardizem .
[2020-11-28] MEDS ORDERED: dextrose ORAL solution 15 GM/59 ML bottle PO PRN ×2 (15:40)
[2020-11-28] MEDS ORDERED: dextrose 50%-water 50ml dispensing syringe IV PRN ×2 (15:40)
[2020-11-28] MEDS ORDERED: glucagon, human recombinant 1mg kit SUBCUT PRN (15:40)
[2020-11-28] MEDS ORDERED: MESSAGE TO PHARMACY PO ONE (15:40)
[2020-11-28] MEDS: HYDROcodone/acetaminophen 5mg/325mg tablet PO PRN ×2 (15:53→22:27)
[2020-11-28] MEDS: insulin Lispro (HumaLOG) vial - multi-dose SQ SCH (15:59)
[2020-11-28] MEDS: normal saline 1000ml 1,000 ML IV SCH (17:25)
--- NOTE | 2020-11-28 18:22 | NUR ---
Problems reprioritized. Patient report given, questions answered & plan of care reviewed with Krupa MAXWELL. Addendum: 11/28/20 at 1824 by Brennen Yarbrough RN incorrect entry- report given to Fiona MAXWELL
[2020-11-28] MEDS: lactobacillus rhamnosus 10,000 MMU CELLS/CAPSULE PO SCH (19:42)
[2020-11-28] MEDS: insulin glargine (Lantus) pen - multi-dose SQ SCH (23:05)
[2020-11-29] MEDS: diltiazem-NS 100mg/100ml 100 ML IV SCH (01:14)
[2020-11-29 02:00] VITALS: BP 121/88
[2020-11-29 06:00] VITALS: BP 160/114
[2020-11-29] MEDS: HYDROcodone/acetaminophen 5mg/325mg tablet PO PRN ×3 (07:03→20:17)
[2020-11-29 07:38] LABS: BASOPHILS % (AUTO) 0 % (0-1); EOSINOPHILS % (AUTO) 0 % (0-6); HEMATOCRIT 42.2 % (42.0-52.0); HEMOGLOBIN 13.6 g/dl (14.0-17.9); LYMPHOCYTES # (AUTO) 0.9 X10'3 (1.1-4.8); MEAN CORPUSCULAR HGB CONC 32.3 g/dL (33.0-36.5); MEAN CORPUSCULAR VOLUME 86.8 FL (78-98); MEAN PLATELET VOLUME 7.3 FL (7.4-10.4); MONOCYTES # (AUTO) 0.3 X10'3 (0-0.9); MONOCYTES % (AUTO) 3.5 % (2-12); NEUTROPHILS # (AUTO) 6.4 X10'3 (1.8-7.7); NEUTROPHILS % (AUTO) 84.5 % (42-75); PLATELET COUNT 344 X10'3 (140-440); RED BLOOD COUNT 4.87 X10'6 (4.70-6.10); RED CELL DISTRIBUTION WIDTH 17.8 % (11.5-14.5); WHITE BLOOD COUNT 7.6 X10'3 (4.5-11.0)
[2020-11-29 07:57] LABS: ALANINE AMINOTRANSFERASE 188 U/L (12-78); ALBUMIN 2.9 G/DL (3.4-5.0); ALBUMIN/GLOBULIN RATIO 0.9 (1.1-1.5); ALKALINE PHOSPHATASE 111 IU/L (46-116); ANION GAP 8 (8-16); ASPARTATE AMINO TRANSFERASE 74 U/L (10-37); BILIRUBIN,TOTAL 0.5 MG/DL (0.1-1.0); BLOOD UREA NITROGEN 50 MG/DL (7-18); BUN/CREATININE RATIO 36.8 (5.4-32.0); CALCIUM 8.5 MG/DL (8.5-10.1); CHLORIDE 103 MMOL/L (99-107); CREATININE 1.36 MG/DL (0.60-1.10); GLUCOSE 241 MG/DL (70-104); SODIUM 141 MMOL/L (135-145); TOTAL CARBON DIOXIDE 30.3 MMOL/L (24-32); TOTAL PROTEIN 6.2 G/DL (6.4-8.2); eGFR 53 ML/MIN
[2020-11-29] MEDS: EMPAGLIFLOZIN 10 MG PO SCH (08:00)
[2020-11-29] MEDS: dexamethasone inj 10 MG in normal saline 50ml IV soln 50 ML IV SCH ×2 (09:47→20:20)
[2020-11-29] MEDS: CefTRIAXone 2gm/D5W 50ml BAG 50 ML IV SCH (09:48)
[2020-11-29] MEDS: atorvastatin 20mg tablet PO SCH (09:48)
[2020-11-29] MEDS: REMDESIVIR INJ 100 MG in normal saline 100ml IV soln 80 ML IV SCH (09:48)
[2020-11-29] MEDS: metoprolol tartrate 50mg tablet PO SCH ×2 (09:50→20:18)
[2020-11-29] MEDS: lisinopril 2.5mg tablet PO SCH (09:50)
[2020-11-29] MEDS: enoxaparin 60mg/0.6ml syringe SUBCUT SCH ×2 (09:50→20:19)
[2020-11-29] MEDS: furosemide 40mg/4ml inj IV SCH ×2 (09:51→20:19)
[2020-11-29] MEDS: docusate sod 100mg capsule PO SCH ×2 (09:51→20:18)
[2020-11-29] MEDS: lactobacillus rhamnosus 10,000 MMU CELLS/CAPSULE PO SCH ×2 (09:51→20:17)
[2020-11-29] MEDS: potassium Cl 20 mEq SR tablet PO SCH (09:51)
[2020-11-29] MEDS: insulin Lispro (HumaLOG) vial - multi-dose SQ SCH ×2 (09:55→14:08)
[2020-11-29 11:00] VITALS: BP 139/103
[2020-11-29] MEDS: diltiazem CD 120mg capsule (once-daily) PO SCH (12:17)
[2020-11-29 15:00] VITALS: BP 135/87
[2020-11-29 18:00] VITALS: BP 128/77
--- NOTE | 2020-11-29 18:26 | NUR ---
Problems reprioritized. Patient report given, questions answered & plan of care reviewed with HANS Jaimes.
[2020-11-29] MEDS: insulin glargine (Lantus) pen - multi-dose SQ SCH (21:00)
[2020-11-29 22:00] VITALS: BP 131/81
[2020-11-30 02:00] VITALS: BP 126/77
[2020-11-30] MEDS: HYDROcodone/acetaminophen 5mg/325mg tablet PO PRN ×3 (03:05→22:58)
[2020-11-30 06:00] VITALS: BP 113/88
[2020-11-30 06:48] LABS: BASOPHILS % (AUTO) 0.1 % (0-1); EOSINOPHILS % (AUTO) 0 % (0-6); HEMATOCRIT 43.7 % (42.0-52.0); LYMPHOCYTES # (AUTO) 1.1 X10'3 (1.1-4.8); LYMPHOCYTES % (AUTO) 10.9 % (21-51); MEAN CORPUSCULAR HEMOGLOBIN 28.2 PG (27.0-31.0); MEAN CORPUSCULAR HGB CONC 32.1 g/dL (33.0-36.5); MEAN CORPUSCULAR VOLUME 87.7 FL (78-98); MEAN PLATELET VOLUME 7.5 FL (7.4-10.4); MONOCYTES # (AUTO) 0.5 X10'3 (0-0.9); MONOCYTES % (AUTO) 4.7 % (2-12); NEUTROPHILS # (AUTO) 8.4 X10'3 (1.8-7.7); NEUTROPHILS % (AUTO) 84.3 % (42-75); PLATELET COUNT 311 X10'3 (140-440); RED BLOOD COUNT 4.98 X10'6 (4.70-6.10); RED CELL DISTRIBUTION WIDTH 17.5 % (11.5-14.5)
[2020-11-30 07:24] LABS: ALANINE AMINOTRANSFERASE 167 U/L (12-78); ALBUMIN 2.9 G/DL (3.4-5.0); ALBUMIN/GLOBULIN RATIO 0.9 (1.1-1.5); ALKALINE PHOSPHATASE 109 IU/L (46-116); ANION GAP 12 (8-16); ASPARTATE AMINO TRANSFERASE 64 U/L (10-37); BILIRUBIN,TOTAL 0.4 MG/DL (0.1-1.0); BLOOD UREA NITROGEN 55 MG/DL (7-18); CALCIUM 8.1 MG/DL (8.5-10.1); CHLORIDE 100 MMOL/L (99-107); CREATININE 1.28 MG/DL (0.60-1.10); GLUCOSE 155 MG/DL (70-104); POTASSIUM 4.9 MMOL/L (3.5-5.1); SODIUM 137 MMOL/L (135-145); TOTAL CARBON DIOXIDE 25.1 MMOL/L (24-32); TOTAL PROTEIN 6.3 G/DL (6.4-8.2); eGFR 56 ML/MIN
[2020-11-30] MEDS: CefTRIAXone 2gm/D5W 50ml BAG 50 ML IV SCH (07:52)
[2020-11-30] MEDS: dexamethasone inj 10 MG in normal saline 50ml IV soln 50 ML IV SCH ×2 (07:52→20:24)
[2020-11-30] MEDS: REMDESIVIR INJ 100 MG in normal saline 100ml IV soln 80 ML IV SCH (07:52)
[2020-11-30] MEDS: furosemide 40mg/4ml inj IV SCH ×2 (07:53→20:26)
[2020-11-30] MEDS: lactobacillus rhamnosus 10,000 MMU CELLS/CAPSULE PO SCH ×2 (07:54→20:30)
[2020-11-30] MEDS: diltiazem CD 120mg capsule (once-daily) PO SCH (07:54)
[2020-11-30] MEDS: metoprolol tartrate 50mg tablet PO SCH ×2 (07:54→20:34)
[2020-11-30] MEDS: docusate sod 100mg capsule PO SCH ×2 (07:54→20:30)
[2020-11-30] MEDS: enoxaparin 60mg/0.6ml syringe SUBCUT SCH ×2 (07:54→20:30)
[2020-11-30] MEDS: atorvastatin 20mg tablet PO SCH (07:54)
[2020-11-30] MEDS: lisinopril 2.5mg tablet PO SCH (07:55)
[2020-11-30] MEDS: EMPAGLIFLOZIN 10 MG PO SCH (07:55)
[2020-11-30] MEDS: potassium Cl 20 mEq SR tablet PO SCH (07:55)
[2020-11-30] MEDS: insulin Lispro (HumaLOG) vial - multi-dose SQ SCH ×3 (09:05→20:52)
[2020-11-30 11:00] VITALS: BP 135/76
--- NOTE | 2020-11-30 12:18 | NUR ---
Initial: Pt admit for acute respiratory failure with hypoxemia, COVID-19, and CHF exacerbation. Noted pt with h/o DM with A1c 7.9% 10/28 per EMR, pt seen by RD at last admit for DM education. RD contact information provided at that time. Pt s/p BSS 11/[address] rec[address] MM5 food which was advanced to SB6 at f/u BSS 11/29. Pt eating well with 75-100% PO intake. LBM 11/28 per I&O, receiving routine bowel care. No nutrition intervention implemented at this time. Will continue to follow. Recommendations: 1) Continue SB6 heart healthy CHO controlled diet with thin liquids per ST recs 2) Monitor need for additional protein for satiety 3) Routine bowel care 4) Scaled weight this admit; weekly scaled weight thereafter Addendum: 11/30/20 at [address] Amended: Links added.
--- NOTE | 2020-11-30 12:53 | NUR ---
DC louis? PAGER ID: [phone] MESSAGE: room 3008 [place] Ray, can I DC patients louis catheter? He is no longer in restraints, he is mobile and willing to use bedside urinal. Thank you, Denia MAXWELL [phone]
[2020-11-30 15:00] VITALS: BP 111/89
[2020-11-30] MEDS: normal saline 1000ml 1,000 ML IV SCH (17:25)
--- NOTE | 2020-11-30 18:25 | NUR ---
Problems reprioritized. Patient report given, questions answered & plan of care reviewed with Raegan MAXWELL.
--- NOTE | 2020-11-30 18:30 | NUR ---
Patient in room PCU 3008. I have received report from CHRISTINE MAXWELL and had the opportunity to ask questions and assume patient care.
[2020-11-30 19:00] VITALS: BP 148/82
[2020-11-30 22:00] VITALS: BP 118/76
[2020-11-30] MEDS: insulin glargine (Lantus) pen - multi-dose SQ SCH (23:10)
[2020-12-01 02:00] VITALS: BP 126/90
[2020-12-01 06:00] VITALS: BP 128/81
--- NOTE | 2020-12-01 06:22 | NUR ---
Problems reprioritized. Patient report given, questions answered & plan of care reviewed with KONRAD MAXWELL.
[2020-12-01 07:13] LABS: BASOPHILS % (AUTO) 0.1 % (0-1); EOSINOPHILS % (AUTO) 0 % (0-6); HEMATOCRIT 44.7 % (42.0-52.0); HEMOGLOBIN 14.4 g/dl (14.0-17.9); LYMPHOCYTES # (AUTO) 1.1 X10'3 (1.1-4.8); LYMPHOCYTES % (AUTO) 13.8 % (21-51); MEAN CORPUSCULAR HEMOGLOBIN 27.7 PG (27.0-31.0); MEAN CORPUSCULAR HGB CONC 32.1 g/dL (33.0-36.5); MEAN CORPUSCULAR VOLUME 86.1 FL (78-98); MEAN PLATELET VOLUME 7.4 FL (7.4-10.4); MONOCYTES # (AUTO) 0.4 X10'3 (0-0.9); MONOCYTES % (AUTO) 4.5 % (2-12); NEUTROPHILS # (AUTO) 6.4 X10'3 (1.8-7.7); NEUTROPHILS % (AUTO) 81.6 % (42-75); PLATELET COUNT 315 X10'3 (140-440); RED BLOOD COUNT 5.19 X10'6 (4.70-6.10); RED CELL DISTRIBUTION WIDTH 17.8 % (11.5-14.5); WHITE BLOOD COUNT 7.8 X10'3 (4.5-11.0)
[2020-12-01 07:23] LABS: ALANINE AMINOTRANSFERASE 133 U/L (12-78); ALBUMIN 2.8 G/DL (3.4-5.0); ALBUMIN/GLOBULIN RATIO 0.9 (1.1-1.5); ALKALINE PHOSPHATASE 105 IU/L (46-116); ANION GAP 9 (8-16); ASPARTATE AMINO TRANSFERASE 40 U/L (10-37); BILIRUBIN,TOTAL 0.6 MG/DL (0.1-1.0); BLOOD UREA NITROGEN 45 MG/DL (7-18); BUN/CREATININE RATIO 38.1 (5.4-32.0); CALCIUM 8.1 MG/DL (8.5-10.1); CHLORIDE 101 MMOL/L (99-107); CREATININE 1.18 MG/DL (0.60-1.10); GLUCOSE 104 MG/DL (70-104); POTASSIUM 4.2 MMOL/L (3.5-5.1); SODIUM 140 MMOL/L (135-145); TOTAL CARBON DIOXIDE 29.9 MMOL/L (24-32); eGFR 62 ML/MIN
[2020-12-01] MEDS: enoxaparin 60mg/0.6ml syringe SUBCUT SCH ×2 (07:55→19:36)
[2020-12-01] MEDS: dexamethasone inj 10 MG in normal saline 50ml IV soln 50 ML IV SCH ×2 (07:55→19:29)
[2020-12-01] MEDS: furosemide 40mg/4ml inj IV SCH ×2 (07:59→19:31)
[2020-12-01] MEDS: EMPAGLIFLOZIN 10 MG PO SCH (08:00)
[2020-12-01] MEDS: docusate sod 100mg capsule PO SCH ×2 (08:01→19:31)
[2020-12-01] MEDS: potassium Cl 20 mEq SR tablet PO SCH (08:02)
[2020-12-01] MEDS: lisinopril 2.5mg tablet PO SCH (08:02)
[2020-12-01] MEDS: metoprolol tartrate 50mg tablet PO SCH ×2 (08:03→19:31)
[2020-12-01] MEDS: lactobacillus rhamnosus 10,000 MMU CELLS/CAPSULE PO SCH ×2 (08:03→19:36)
[2020-12-01] MEDS: atorvastatin 20mg tablet PO SCH (08:03)
[2020-12-01] MEDS: diltiazem CD 120mg capsule (once-daily) PO SCH (08:09)
[2020-12-01] MEDS: CefTRIAXone 2gm/D5W 50ml BAG 50 ML IV SCH (08:50)
[2020-12-01] MEDS: insulin Lispro (HumaLOG) vial - multi-dose SQ SCH ×3 (08:52→19:28)
[2020-12-01] MEDS: REMDESIVIR INJ 100 MG in normal saline 100ml IV soln 80 ML IV SCH (10:20)
[2020-12-01 12:00] VITALS: BP 101/73
[2020-12-01] MEDS: HYDROcodone/acetaminophen 5mg/325mg tablet PO PRN ×2 (14:36→19:55)
[2020-12-01 15:00] VITALS: BP 119/62
[2020-12-01 18:00] VITALS: BP 131/115
--- NOTE | 2020-12-01 18:30 | NUR ---
Report given to traveler RN, all questions answered. Sitter in Ante-room. Pt eating dinner at shift change, no distress.
--- NOTE | 2020-12-01 21:00 | NUR ---
Pt sitting at the edge of bed very restless, medicated for pain. Sitter at bedside monitoring pt ; fall safety measure in place
[2020-12-01] MEDS: insulin glargine (Lantus) pen - multi-dose SQ SCH (21:16)
[2020-12-01 22:00] VITALS: BP 158/105
[2020-12-02] MEDS: HYDROcodone/acetaminophen 5mg/325mg tablet PO PRN (00:54)
--- NOTE | 2020-12-02 03:00 | NUR ---
Multiple scabs to upper and lower extremities, redness and edema to lower extremities; skin care done. Pt encourages to elevate his legs but like to sit at the edge of bed. Continue to teach pt about safety measure.
[2020-12-02 03:14] VITALS: BP 134/94
[2020-12-02 03:17] VITALS: BP 134/94
[2020-12-02 06:00] VITALS: BP 106/73
[2020-12-02] MEDS: atorvastatin 20mg tablet PO SCH (08:23)
[2020-12-02] MEDS: metoprolol tartrate 50mg tablet PO SCH (08:23)
[2020-12-02 08:24] VITALS: BP_SYST 130
[2020-12-02] MEDS: diltiazem CD 120mg capsule (once-daily) PO SCH (08:24)
[2020-12-02] MEDS: lisinopril 2.5mg tablet PO SCH (08:24)
[2020-12-02] MEDS: lactobacillus rhamnosus 10,000 MMU CELLS/CAPSULE PO SCH (08:24)
[2020-12-02] MEDS: furosemide 40mg/4ml inj IV SCH (08:24)
[2020-12-02] MEDS: docusate sod 100mg capsule PO SCH (08:24)
[2020-12-02] MEDS: potassium Cl 20 mEq SR tablet PO SCH (08:24)
[2020-12-02] MEDS: enoxaparin 60mg/0.6ml syringe SUBCUT SCH (08:25)
[2020-12-02] MEDS: CefTRIAXone 2gm/D5W 50ml BAG 50 ML IV SCH (08:25)
[2020-12-02] MEDS: dexamethasone inj 10 MG in normal saline 50ml IV soln 50 ML IV SCH (08:25)
[2020-12-02] MEDS: insulin Lispro (HumaLOG) vial - multi-dose SQ SCH (10:10)
--- NOTE | 2020-12-02 12:50 | NUR ---
PAGER ID: [phone] MESSAGE: WES [email or web address], ARE YOU GOING TO DC [phone]
--- NOTE | 2020-12-02 13:32 | NUR ---
patient left the hospital against medical advice. patient's PIV was discontinued with catheter tip intact. patient sign AMA form and left the unit
[2020-12-02] MEDS ORDERED: FURO40TA4 PO (13:45)
[2020-12-02] MEDS ORDERED: DEC4T PO (13:45)
== END 2020-12-02 13:06 | disposition left against medical advice (07) | DRG 177 ==
LOC: ER 16:07 → ED HOLD 17:29 → UNDOADMIN 17:29 → ED HOLD 23:30 → ORTHO 4S 23:30 → PCU 3S 11-27 19:10 → ORTHO 4S 11-27 19:10
PROVIDERS: ADMIT Family Medicine; ATTEND Family Medicine
PROC: XW033E5 Introduction of Remdesivir Anti-infective into Peripheral Vein, Percutaneous Approach, New Technology Group 5 (ICD-10-PCS; principal; 2020-11-26)
PROC: 5A0935A Assistance with Respiratory Ventilation, Less than 24 Consecutive Hours, High Flow/Velocity Cannula (ICD-10-PCS; 2020-11-30)
DX: U07.1 COVID-19 (principal); J96.21 Acute and chronic respiratory failure with hypoxia; I50.23 Acute on chronic systolic (congestive) heart failure; J12.82 Pneumonia due to coronavirus disease 2019; G93.41 Metabolic encephalopathy; L03.116 Cellulitis of left lower limb; L03.115 Cellulitis of right lower limb; J44.0 Chronic obstructive pulmonary disease with (acute) lower respiratory infection; I13.0 Hypertensive heart and chronic kidney disease with heart failure and stage 1 through stage 4 chronic kidney disease, or unspecified chronic kidney disease; Z53.29 Procedure and treatment not carried out because of patient's decision for other reasons; E78.00 Pure hypercholesterolemia, unspecified; I87.2 Venous insufficiency (chronic) (peripheral); F17.210 Nicotine dependence, cigarettes, uncomplicated; E11.22 Type 2 diabetes mellitus with diabetic chronic kidney disease; N18.9 Chronic kidney disease, unspecified; I25.10 Atherosclerotic heart disease of native coronary artery without angina pectoris; I48.91 Unspecified atrial fibrillation; F12.90 Cannabis use, unspecified, uncomplicated; G89.29 Other chronic pain; M54.9 Dorsalgia, unspecified; I25.2 Old myocardial infarction; Z99.81 Dependence on supplemental oxygen; Z88.5 Allergy status to narcotic agent; Z82.5 Family history of asthma and other chronic lower respiratory diseases; Z84.89 Family history of other specified conditions
CPT/HCPCS: 36415; 36600; 71045; 80053; 80305; 80320; 81001; 82803; 82948; 83605; 83735; 83880; 84145; 84484; 85007; 85018; 85025; 87040; 87081; 87088; 87635; 92508; 92616; 93005; 94760; 96374; 96375; 99285; C9803; G0378; J0456; J0696; J1100; J1160; J1630; J1650; J1815; J1940; J2060; J2270; J2405; J3490; J7030